=== PATIENT | female | born 1960 | race Caucasian/White ===

== ENCOUNTER 2024-02-05 06:57 | Day surgery (SDC) | payer OTHER ==
[~2024-02-05] VITALS: Ht 157.5 cm; Wt 108.9 kg
[2024-02-05] MEDS ORDERED: fentaNYL CITRATE/PF 100 MCG/2 ML AMP ONE (07:45)
[2024-02-05] MEDS ORDERED: MIDAZOLAM HCL 5 MG/5 ML VIAL ONE (07:45)
[2024-02-05 14:24] VITALS: BP_SYST 154; PULSE 73; RESP 18; TEMP 98.1; O2SAT 95
== END 2024-02-05 10:35 | disposition home or self-care (01) ==
LOC: SDS 06:57 → SMU 06:59 → SDS 10:35
PROVIDERS: ATTEND Internal Medicine
DX: K59.00 Constipation, unspecified (principal); D12.4 Benign neoplasm of descending colon; D12.3 Benign neoplasm of transverse colon; K63.89 Other specified diseases of intestine; K64.8 Other hemorrhoids; I10 Essential (primary) hypertension; E11.9 Type 2 diabetes mellitus without complications; Z79.82 Long term (current) use of aspirin; Z79.84 Long term (current) use of oral hypoglycemic drugs; Z79.899 Other long term (current) drug therapy; Z87.891 Personal history of nicotine dependence
CPT/HCPCS: 45380; 45385; 88305; 99152; G0378; J2250; J3010